=== PATIENT | female | born 1950 | race Caucasian/White ===

== ENCOUNTER 2021-05-02 19:36 | Inpatient (IN) | payer MEDICARE ==
[~2021-05-02] VITALS: Ht 167.6 cm; Wt 55.9 kg
[2021-05-02] MEDS ORDERED: dexamethasone sod phosphate 10mg/ml inj IV STA (19:38)
[2021-05-02] MEDS ORDERED: normal saline 1000ML IV soln IVB ONE (19:40)
[2021-05-02 20:18] LABS: BASOPHILS % (AUTO) 0 % (0-1); EOSINOPHILS % (AUTO) 0 % (0-6); HEMOGLOBIN 12.6 g/dl (12.0-16.0); LYMPHOCYTES # (AUTO) 0.6 X10'3 (1.1-4.8); LYMPHOCYTES % (AUTO) 8.8 % (21-51); MEAN CORPUSCULAR HEMOGLOBIN 33.1 PG (27.0-31.0); MEAN CORPUSCULAR HGB CONC 34.2 g/dL (33.0-36.5); MEAN CORPUSCULAR VOLUME 96.9 FL (78-98); MEAN PLATELET VOLUME 7.8 FL (7.4-10.4); MONOCYTES # (AUTO) 0.6 X10'3 (0-0.9); NEUTROPHILS # (AUTO) 5.9 X10'3 (1.8-7.7); NEUTROPHILS % (AUTO) 83.2 % (42-75); PLATELET COUNT 205 X10'3 (140-440); RED BLOOD COUNT 3.81 X10'6 (4.20-5.60); RED CELL DISTRIBUTION WIDTH 14.6 % (11.5-14.5); WHITE BLOOD COUNT 7.1 X10'3 (4.5-11.0)
[2021-05-02 20:24] LABS: ALANINE AMINOTRANSFERASE 36 U/L (12-78); ALBUMIN 3.5 G/DL (3.4-5.0); ALBUMIN/GLOBULIN RATIO 0.9 (1.1-1.5); ALKALINE PHOSPHATASE 52 IU/L (46-116); ANION GAP 13 (8-16); ASPARTATE AMINO TRANSFERASE 38 U/L (10-37); BILIRUBIN,TOTAL 0.2 MG/DL (0.1-1.0); BLOOD UREA NITROGEN 22 MG/DL (7-18); BUN/CREATININE RATIO 19.8 (6.6-38.0); CALCIUM 8.5 MG/DL (8.5-10.1); CHLORIDE 104 MMOL/L (99-107); CREATININE 1.11 MG/DL (0.40-0.90); GLUCOSE 121 MG/DL (70-104); POTASSIUM 3.3 MMOL/L (3.5-5.1); SODIUM 143 MMOL/L (135-145); TOTAL CARBON DIOXIDE 26.1 MMOL/L (24-32); TOTAL PROTEIN 7.3 G/DL (6.4-8.2); eGFR 48 ML/MIN
[2021-05-02] MEDS ORDERED: ALBUTEROL INHALER 1 PUFF/90 MCG INHALER IH PRN (20:40)
--- NOTE | 2021-05-02 21:14 | NUR ---
talked with pattern painter at [facility]. updated on patients 2LPM 02 requirement and no additional interventions needed. staff member is talking with director to see if patient is able to return with oxygen
--- NOTE | 2021-05-02 21:16 | NUR ---
kassi harden returned call. will aurora to keep patient in ED to set up oxygen in the AM. provider notified
[2021-05-02] MEDS ORDERED: ondansetron/PF 4mg/2ml inj IV PRN (21:50)
[2021-05-02] MEDS ORDERED: morphine 2 MG/ML inj. syringe IV PRN ×2 (21:50)
[2021-05-02] MEDS ORDERED: mag hydrox/Alum hydrox/simeth 30ml oral suspension PO PRN (21:50)
[2021-05-02] MEDS ORDERED: HYDROcodone/acetaminophen 5mg/325mg tablet PO PRN (21:50)
[2021-05-02] MEDS ORDERED: magnesium hydroxide 30ml (MOM) UD suspension PO PRN (21:50)
[2021-05-02] MEDS ORDERED: acetaminophen 325mg tablet PO PRN ×2 (21:50)
[2021-05-02] MEDS ORDERED: ACYC-129 PO (21:57)
[2021-05-02] MEDS ORDERED: ALLO100T PO (21:57)
[2021-05-02] MEDS ORDERED: ALBU8.5H17 IH (21:57)
[2021-05-02] MEDS ORDERED: BACL-11 PO (21:57)
[2021-05-02] MEDS ORDERED: DEC4T PO (22:01)
[2021-05-02] MEDS ORDERED: OMEP40CA21 PO (22:01)
[2021-05-02] MEDS ORDERED: MELA10TA2 PO (22:01)
[2021-05-02] MEDS ORDERED: ROPI1TAB6 PO (22:01)
[2021-05-02] MEDS ORDERED: OLAN5TAB5 PO (22:01)
[2021-05-02] MEDS ORDERED: FURO-150 PO (22:01)
[2021-05-02] MEDS ORDERED: OXYB5TAB16 PO (22:01)
[2021-05-02] MEDS ORDERED: FLUO10CA30 PO (22:01)
[2021-05-02] MEDS ORDERED: GABA-530 PO (22:01)
[2021-05-02 22:09] LABS: D-DIMER 0.22 MG/L FEU (0-0.50)
[2021-05-02 22:27] LABS: PHOSPHORUS 3.2 MG/DL (2.3-4.5); TROPONIN I < 0.04 NG/ML (0.0-0.05)
[2021-05-03 05:29] LABS: BASOPHILS % (AUTO) 0 % (0-1); EOSINOPHILS % (AUTO) 0 % (0-6); HEMATOCRIT 32.6 % (35.0-45.0); HEMOGLOBIN 11.2 g/dl (12.0-16.0); LYMPHOCYTES # (AUTO) 0.5 X10'3 (1.1-4.8); LYMPHOCYTES % (AUTO) 10.1 % (21-51); MEAN CORPUSCULAR HEMOGLOBIN 33.2 PG (27.0-31.0); MEAN CORPUSCULAR HGB CONC 34.4 g/dL (33.0-36.5); MEAN CORPUSCULAR VOLUME 96.6 FL (78-98); MONOCYTES # (AUTO) 0.3 X10'3 (0-0.9); MONOCYTES % (AUTO) 5.5 % (2-12); NEUTROPHILS # (AUTO) 4.2 X10'3 (1.8-7.7); NEUTROPHILS % (AUTO) 84.4 % (42-75); PLATELET COUNT 157 X10'3 (140-440); RED BLOOD COUNT 3.37 X10'6 (4.20-5.60); RED CELL DISTRIBUTION WIDTH 14.4 % (11.5-14.5)
[2021-05-03 05:37] LABS: ALBUMIN 2.7 G/DL (3.4-5.0); ANION GAP 8 (8-16); BLOOD UREA NITROGEN 18 MG/DL (7-18); BUN/CREATININE RATIO 20.9 (6.6-38.0); CALCIUM 8.1 MG/DL (8.5-10.1); CHLORIDE 108 MMOL/L (99-107); CREATININE 0.86 MG/DL (0.40-0.90); GLUCOSE 148 MG/DL (70-104); POTASSIUM 3.5 MMOL/L (3.5-5.1); SODIUM 141 MMOL/L (135-145); TOTAL CARBON DIOXIDE 25.2 MMOL/L (24-32); eGFR 65 ML/MIN
[2021-05-03] MEDS ORDERED: ALBUTEROL INHALER 1 PUFF/90 MCG INHALER IH PRN (06:25)
[2021-05-03] MEDS: OLANZapine 5mg rapidly disint. tablet PO SCH (08:00)
[2021-05-03] MEDS: docusate sod 100mg capsule PO SCH ×2 (08:00→20:00)
[2021-05-03] MEDS: ROPINIRole 1mg tablet PO SCH ×2 (09:54→19:32)
[2021-05-03] MEDS: enoxaparin 40mg/0.4ml syringe SUBCUT SCH (09:54)
[2021-05-03] MEDS: pantoprazole 40mg Tablet.DR PO SCH (09:54)
[2021-05-03] MEDS: oxybutynin 5mg tablet PO SCH ×2 (09:55→19:31)
[2021-05-03] MEDS: allopurinol 100mg tablet PO SCH (09:55)
[2021-05-03] MEDS: furosemide 20MG tablet PO SCH (09:56)
[2021-05-03] MEDS: baclofen 10mg tablet PO SCH ×2 (09:58→19:31)
[2021-05-03] MEDS: FLUoxetine 20mg capsule PO SCH (09:58)
[2021-05-03 10:01] VITALS: BP 104/60
[2021-05-03 11:00] VITALS: BP 116/48
[2021-05-03] MEDS: dexamethasone sod phosphate 10mg/ml inj IV SCH ×2 (11:03→19:32)
[2021-05-03 15:00] VITALS: BP 129/99
[2021-05-03 18:00] VITALS: BP 131/62
--- NOTE | 2021-05-03 18:41 | NUR ---
Problems reprioritized. Patient report given, questions answered & plan of care reviewed with ELLEN LANGE.
[2021-05-03] MEDS: gabapentin 300mg capsule PO SCH (20:58)
[2021-05-03] MEDS: Melatonin 3mg tablet PO SCH (20:58)
[2021-05-03 22:00] VITALS: BP 118/55
--- NOTE | 2021-05-04 01:22 | NUR ---
RT paged for Tierney HUGHES to assist pt with prn breathing tx if indicated. "RE: [phone]: pawel allyson: pt is working hard to breath. RR elevated mid 20's up to 32/min. can she have a breathing tx? Thank you, -Bev HUGHES and Tierney HUGHES"
[2021-05-04 02:00] VITALS: BP 121/99
[2021-05-04 06:00] VITALS: BP 111/59
--- NOTE | 2021-05-04 06:23 | NUR ---
Problems reprioritized. Patient report given, questions answered & plan of care reviewed with ELLEN Calvin.
--- NOTE | 2021-05-04 06:27 | NUR ---
Patient in room PCU 3008. I have received report from ELLEN Monet and had the opportunity to ask questions and assume patient care.
[2021-05-04 06:55] LABS: BASOPHILS % (AUTO) 0.1 % (0-1); EOSINOPHILS % (AUTO) 0 % (0-6); HEMATOCRIT 38.9 % (35.0-45.0); HEMOGLOBIN 13.3 g/dl (12.0-16.0); LYMPHOCYTES # (AUTO) 0.6 X10'3 (1.1-4.8); LYMPHOCYTES % (AUTO) 6.3 % (21-51); MEAN CORPUSCULAR HGB CONC 34.1 g/dL (33.0-36.5); MEAN PLATELET VOLUME 7.5 FL (7.4-10.4); MONOCYTES # (AUTO) 0.4 X10'3 (0-0.9); MONOCYTES % (AUTO) 3.7 % (2-12); NEUTROPHILS % (AUTO) 89.9 % (42-75); PLATELET COUNT 247 X10'3 (140-440); RED BLOOD COUNT 4.01 X10'6 (4.20-5.60); RED CELL DISTRIBUTION WIDTH 14.8 % (11.5-14.5)
[2021-05-04 07:03] LABS: ANION GAP 7 (8-16); BLOOD UREA NITROGEN 20 MG/DL (7-18); BUN/CREATININE RATIO 20.2 (6.6-38.0); CALCIUM 8.9 MG/DL (8.5-10.1); CHLORIDE 109 MMOL/L (99-107); CREATININE 0.99 MG/DL (0.40-0.90); GLUCOSE 117 MG/DL (70-104); POTASSIUM 3.8 MMOL/L (3.5-5.1); SODIUM 147 MMOL/L (135-145); TOTAL CARBON DIOXIDE 30.6 MMOL/L (24-32); eGFR 55 ML/MIN
[2021-05-04] MEDS: baclofen 10mg tablet PO SCH ×2 (07:22→19:54)
[2021-05-04] MEDS: allopurinol 100mg tablet PO SCH (07:22)
[2021-05-04] MEDS: FLUoxetine 20mg capsule PO SCH (07:22)
[2021-05-04] MEDS: pantoprazole 40mg Tablet.DR PO SCH (07:22)
[2021-05-04] MEDS: docusate sod 100mg capsule PO SCH ×2 (07:22→19:54)
[2021-05-04] MEDS: enoxaparin 40mg/0.4ml syringe SUBCUT SCH (07:22)
[2021-05-04] MEDS: furosemide 20MG tablet PO SCH (07:22)
[2021-05-04] MEDS: oxybutynin 5mg tablet PO SCH ×2 (07:22→19:54)
[2021-05-04] MEDS: ROPINIRole 1mg tablet PO SCH ×2 (07:22→19:54)
[2021-05-04] MEDS: OLANZapine 5mg rapidly disint. tablet PO SCH (07:23)
[2021-05-04] MEDS: dexamethasone sod phosphate 10mg/ml inj IV SCH ×2 (07:23→19:54)
[2021-05-04 11:00] VITALS: BP 115/65
[2021-05-04 12:57] LABS: D-DIMER 0.25 MG/L FEU (0-0.50)
--- NOTE | 2021-05-04 13:49 | NUR ---
Malnutrition consult "pt deaf/mute w/ dementia, unable to determine full need": Pt admit DX COVID-19 PNA and acute respiratory failure hx deaf and mute w/ only written communication per EMR. Pt unsure of wt loss hx per RN malnutrition screen, appears WD/WN per ER note, has no edema/wounds, PO 50% avg regular diet up to 75% WB this AM; and current BMI appropriate given age. Lacks minimum two malnutrition criteria at this time. Noted pt SOB increasing today per MD note; recommend Ensure high protein TIDWM for additional protein/kcals. MD notified. Addendum: 05/04/21 at [address] Amended: Links added.
[2021-05-04 15:00] VITALS: BP 110/62
--- NOTE | 2021-05-04 16:42 | NUR ---
Paged RT d/t ongoing desaturation: Mathieu Jimenez [phone] pt continues to desat into mid 80s with 15LHFNC. Can you evaluate? Thank you! Marixa [phone]
[2021-05-04 18:00] VITALS: BP 122/71
[2021-05-04] MEDS: lactose-reduced food (Ensure High Protein) 237ml bottle PO SCH (18:00)
--- NOTE | 2021-05-04 18:02 | NUR ---
Problems reprioritized. Patient report given, questions answered & plan of care reviewed with ELLEN Monet.
--- NOTE | 2021-05-04 18:27 | NUR ---
Problems reprioritized. Patient report given, questions answered & plan of care reviewed with ELLEN Valencia.
[2021-05-04] MEDS: Melatonin 3mg tablet PO SCH (20:56)
[2021-05-04] MEDS: gabapentin 300mg capsule PO SCH (20:56)
[2021-05-04 22:00] VITALS: BP 104/57
--- NOTE | 2021-05-04 22:28 | NUR ---
Paged RT. RE : pt in RM 1410 Andreina Murdcok Dx : Covid +. Pt keeps on desating t because she keeps on removing her nonrebreather mask. Can she have a Vapotherm instead? Thanks!
[2021-05-05 02:00] VITALS: BP 104/51
[2021-05-05 06:00] VITALS: BP 101/87
--- NOTE | 2021-05-05 06:15 | NUR ---
Patient in room PCU 3008. I have received report from Beulah HUGHES and had the opportunity to ask questions and assume patient care.
--- NOTE | 2021-05-05 06:20 | NUR ---
Problems reprioritized. Patient report given, questions answered & plan of care reviewed with ELLEN Cortez.
[2021-05-05 06:48] LABS: BASOPHILS % (AUTO) 0.1 % (0-1); EOSINOPHILS % (AUTO) 0 % (0-6); HEMATOCRIT 37.9 % (35.0-45.0); HEMOGLOBIN 12.7 g/dl (12.0-16.0); LYMPHOCYTES # (AUTO) 0.6 X10'3 (1.1-4.8); LYMPHOCYTES % (AUTO) 5.5 % (21-51); MEAN CORPUSCULAR HEMOGLOBIN 32.8 PG (27.0-31.0); MEAN CORPUSCULAR HGB CONC 33.5 g/dL (33.0-36.5); MEAN CORPUSCULAR VOLUME 97.8 FL (78-98); MEAN PLATELET VOLUME 7.8 FL (7.4-10.4); MONOCYTES # (AUTO) 0.3 X10'3 (0-0.9); MONOCYTES % (AUTO) 2.4 % (2-12); NEUTROPHILS # (AUTO) 10.6 X10'3 (1.8-7.7); PLATELET COUNT 260 X10'3 (140-440); RED BLOOD COUNT 3.87 X10'6 (4.20-5.60); RED CELL DISTRIBUTION WIDTH 14.6 % (11.5-14.5); WHITE BLOOD COUNT 11.5 X10'3 (4.5-11.0)
[2021-05-05 07:07] LABS: ALBUMIN 2.6 G/DL (3.4-5.0); ANION GAP 8 (8-16); BLOOD UREA NITROGEN 23 MG/DL (7-18); BUN/CREATININE RATIO 25.6 (6.6-38.0); C-REACTIVE PROTEIN 14.06 MG/DL (0.0-0.5); CALCIUM 8.6 MG/DL (8.5-10.1); CHLORIDE 105 MMOL/L (99-107); GLUCOSE 117 MG/DL (70-104); POTASSIUM 3.5 MMOL/L (3.5-5.1); SODIUM 142 MMOL/L (135-145); TOTAL CARBON DIOXIDE 28.6 MMOL/L (24-32); eGFR 62 ML/MIN
[2021-05-05 07:09] LABS: D-DIMER 0.59 MG/L FEU (0-0.50)
[2021-05-05] MEDS: lactose-reduced food (Ensure High Protein) 237ml bottle PO SCH ×3 (08:00→18:00)
--- NOTE | 2021-05-05 08:21 | NUR ---
In Room with Pt. pt repeatedly takes non-rebreather mask off. Tried repeatedly to communicate with Pt the importance of wearing the mask by writing everything down on a note pad for Pt. Pt wrote that she understood but continues to take mask off. Pt has history of dementia, is mute and also deaf. Will continue to monitor Pt as needed and continue to try to educate her.
[2021-05-05] MEDS: docusate sod 100mg capsule PO SCH ×2 (08:48→20:21)
[2021-05-05] MEDS: OLANZapine 5mg rapidly disint. tablet PO SCH (08:48)
[2021-05-05] MEDS: baclofen 10mg tablet PO SCH ×2 (08:49→20:22)
[2021-05-05] MEDS: allopurinol 100mg tablet PO SCH (08:49)
[2021-05-05] MEDS: FLUoxetine 20mg capsule PO SCH (08:49)
[2021-05-05] MEDS: ROPINIRole 1mg tablet PO SCH ×2 (08:49→20:21)
[2021-05-05] MEDS: pantoprazole 40mg Tablet.DR PO SCH (08:50)
[2021-05-05] MEDS: dexamethasone sod phosphate 10mg/ml inj IV SCH (08:50)
[2021-05-05] MEDS: furosemide 20MG tablet PO SCH (08:50)
[2021-05-05] MEDS: oxybutynin 5mg tablet PO SCH ×2 (08:50→20:22)
[2021-05-05] MEDS: enoxaparin 40mg/0.4ml syringe SUBCUT SCH (08:53)
[2021-05-05 11:00] VITALS: BP 111/49
[2021-05-05 15:00] VITALS: BP 100/76
[2021-05-05 18:00] VITALS: BP 98/60
--- NOTE | 2021-05-05 18:05 | NUR ---
Problems reprioritized. Patient report given, questions answered & plan of care reviewed with Brianna HUGHES.
--- NOTE | 2021-05-05 18:27 | NUR ---
Problems reprioritized. Patient report given, questions answered & plan of care reviewed with Brianna HUGHES.
--- NOTE | 2021-05-05 18:30 | NUR ---
Patient in room PCU 3008. I have received report from ZINA HUGHES and had the opportunity to ask questions and assume patient care.
[2021-05-05] MEDS: gabapentin 300mg capsule PO SCH (21:46)
[2021-05-05] MEDS: Melatonin 3mg tablet PO SCH (21:48)
[2021-05-05 22:00] VITALS: BP 119/48
--- NOTE | 2021-05-05 23:00 | NUR ---
RT RESET HIGH DANIELA SETTING TO 100 OXYGEN AND 40 fI o2 TO KEEP OXYGEN SATS ABOVE 90. WILL CONTINUE TOMONITOR FOR HYPOXIA. PEPE HUGHES
[2021-05-06 02:00] VITALS: BP 100/48
[2021-05-06] MEDS: LORazepam 2 mg/ml vial IV PRN ×2 (04:27→12:37)
--- NOTE | 2021-05-06 06:46 | NUR ---
Patient in room PCU 3008. I have received report from ELLEN Reed and had the opportunity to ask questions and assume patient care.
--- NOTE | 2021-05-06 06:47 | NUR ---
Problems reprioritized. Patient report given, questions answered & plan of care reviewed with BLAIRE HUGHES.
--- NOTE | 2021-05-06 06:59 | NUR ---
Patient in room PCU 3008. I have received report from Marixa HUGHES and had the opportunity to ask questions and assume patient care.
[2021-05-06] MEDS: pantoprazole 40mg Tablet.DR PO SCH (07:30)
[2021-05-06 07:31] LABS: BASOPHILS % (AUTO) 0 % (0-1); EOSINOPHILS % (AUTO) 0 % (0-6); HEMATOCRIT 36.1 % (35.0-45.0); HEMOGLOBIN 12.3 g/dl (12.0-16.0); LYMPHOCYTES # (AUTO) 0.6 X10'3 (1.1-4.8); LYMPHOCYTES % (AUTO) 5.4 % (21-51); MEAN CORPUSCULAR HEMOGLOBIN 32.5 PG (27.0-31.0); MEAN CORPUSCULAR HGB CONC 34.1 g/dL (33.0-36.5); MEAN CORPUSCULAR VOLUME 95.2 FL (78-98); MEAN PLATELET VOLUME 7.8 FL (7.4-10.4); MONOCYTES # (AUTO) 0.4 X10'3 (0-0.9); MONOCYTES % (AUTO) 3.3 % (2-12); NEUTROPHILS # (AUTO) 10.5 X10'3 (1.8-7.7); NEUTROPHILS % (AUTO) 91.3 % (42-75); PLATELET COUNT 297 X10'3 (140-440); RED BLOOD COUNT 3.79 X10'6 (4.20-5.60); RED CELL DISTRIBUTION WIDTH 14.5 % (11.5-14.5); WHITE BLOOD COUNT 11.6 X10'3 (4.5-11.0)
[2021-05-06 07:46] LABS: ALBUMIN 2.5 G/DL (3.4-5.0); ANION GAP 8 (8-16); BLOOD UREA NITROGEN 29 MG/DL (7-18); BUN/CREATININE RATIO 36.7 (6.6-38.0); C-REACTIVE PROTEIN 18.75 MG/DL (0.0-0.5); CALCIUM 9.1 MG/DL (8.5-10.1); CHLORIDE 106 MMOL/L (99-107); CREATININE 0.79 MG/DL (0.40-0.90); GLUCOSE 125 MG/DL (70-104); POTASSIUM 3.5 MMOL/L (3.5-5.1); SODIUM 141 MMOL/L (135-145); TOTAL CARBON DIOXIDE 27.4 MMOL/L (24-32); eGFR 72 ML/MIN
[2021-05-06] MEDS: lactose-reduced food (Ensure High Protein) 237ml bottle PO SCH ×3 (08:00→18:00)
[2021-05-06] MEDS: furosemide 20MG tablet PO SCH (08:00)
[2021-05-06] MEDS: FLUoxetine 20mg capsule PO SCH (08:00)
[2021-05-06] MEDS: allopurinol 100mg tablet PO SCH (08:00)
[2021-05-06] MEDS: ROPINIRole 1mg tablet PO SCH ×2 (08:00→20:41)
[2021-05-06] MEDS: enoxaparin 40mg/0.4ml syringe SUBCUT SCH (08:00)
[2021-05-06] MEDS: oxybutynin 5mg tablet PO SCH ×2 (08:00→20:41)
[2021-05-06] MEDS: docusate sod 100mg capsule PO SCH ×2 (08:00→20:42)
[2021-05-06] MEDS: OLANZapine 5mg rapidly disint. tablet PO SCH (08:00)
[2021-05-06] MEDS: baclofen 10mg tablet PO SCH ×2 (08:00→20:41)
[2021-05-06] MEDS: dexamethasone sod phosphate 10mg/ml inj IV SCH ×2 (08:00→20:42)
[2021-05-06 08:39] LABS: D-DIMER 0.58 MG/L FEU (0-0.50)
--- NOTE | 2021-05-06 11:00 | NUR ---
welding technician reported patient desaturating into the low 80s. Paged Dr. Hernandez because patient has been having increase oxygen requirements and has never had a blood gas. Blood gas ordered.
[2021-05-06 11:28] VITALS: BP 105/87
--- NOTE | 2021-05-06 11:49 | NUR ---
PAGER ID: [phone] MESSAGE: [phone] Marcio I just had to put a non rebreather on at 15 liters on top of the high flow, respiratory rate in the 30s, saturating in the low 80s. Do you want a blood gas? paul [phone]
[2021-05-06 12:08] LABS: ABG BASE EXCESS 2.6 mmol/L (-2.0-2.0); ABG HCO3 26.2 mmol/L (22.0-26.0); ABG OXYGEN SATURATION 91.6 % (94-97); ABG PCO2 (T) 37.9 mmHg (32.0-45.0); ABG PO2 (T) 62.3 mmHg (75.0-100.0); ALLEN'S TEST POSITIVE; FCOHb 0.3 % (0.0-3.9); FLOW 40 L/min; FMetHb 0.2 % (0.0-1.5); FO2Hb 91.1 % (94-97); PATIENT TEMPERATURE 37.6; TOTAL HEMOGLOBIN 12.9 G/dl (12.0-16.0)
--- NOTE | 2021-05-06 12:12 | NUR ---
PAGER ID: [phone] MESSAGE: DOUGLAS ON TELE, CAN RT GET AN ORDER FOR CPAP/BIPAP ON 3008?
--- NOTE | 2021-05-06 12:26 | NUR ---
promotional table spacer PAGER ID: [phone] MESSAGE: [phone] Marcio is on bipap now, can I start some IV fluids to keep her hydrated? paul [phone]
--- NOTE | 2021-05-06 12:45 | NUR ---
Patient is resting much more comfortably on CPAP. Oxygen saturations in the high 90s. 1mg ativan given to help with work of breathing and restlessness. Sitter at bedside.
--- NOTE | 2021-05-06 13:54 | NUR ---
PAGER ID: [phone] MESSAGE: [phone] Marcio, blood pressure is 98/41 map of 57 and heart rate at rest is in the 60s, sleeping in the 40s. paul [phone]
[2021-05-06 14:45] VITALS: BP_SYST 91; BP_SYST 98; BP_DIAS 40
--- NOTE | 2021-05-06 14:45 | NUR ---
One time 250ml bolus given per protocol for map <60
[2021-05-06 16:11] VITALS: BP 112/60
--- NOTE | 2021-05-06 18:26 | NUR ---
Problems reprioritized. Patient report given, questions answered & plan of care reviewed with Brianna HUGHES.
--- NOTE | 2021-05-06 19:05 | NUR ---
Problems reprioritized. Patient report given, questions answered & plan of care reviewed with CARRIE HUGHES.
[2021-05-06] MEDS: gabapentin 300mg capsule PO SCH (20:41)
[2021-05-06] MEDS: Melatonin 3mg tablet PO SCH (20:41)
[2021-05-06 22:00] VITALS: BP 95/66
[2021-05-07 02:00] VITALS: BP 92/55
--- NOTE | 2021-05-07 06:30 | NUR ---
Patient in room PCU 3008. I have received report from hosea blancas and had the opportunity to ask questions and assume patient care.
[2021-05-07 07:00] VITALS: BP 114/52
[2021-05-07 07:27] LABS: BASOPHILS % (AUTO) 0 % (0-1); EOSINOPHILS % (AUTO) 0.1 % (0-6); HEMATOCRIT 36.3 % (35.0-45.0); HEMOGLOBIN 12.1 g/dl (12.0-16.0); LYMPHOCYTES # (AUTO) 0.5 X10'3 (1.1-4.8); LYMPHOCYTES % (AUTO) 4.4 % (21-51); MEAN CORPUSCULAR HEMOGLOBIN 32.4 PG (27.0-31.0); MEAN CORPUSCULAR HGB CONC 33.4 g/dL (33.0-36.5); MEAN CORPUSCULAR VOLUME 97.1 FL (78-98); MEAN PLATELET VOLUME 7.5 FL (7.4-10.4); MONOCYTES # (AUTO) 0.3 X10'3 (0-0.9); MONOCYTES % (AUTO) 2.3 % (2-12); NEUTROPHILS # (AUTO) 11.1 X10'3 (1.8-7.7); NEUTROPHILS % (AUTO) 93.2 % (42-75); PLATELET COUNT 336 X10'3 (140-440); RED BLOOD COUNT 3.74 X10'6 (4.20-5.60); RED CELL DISTRIBUTION WIDTH 14.3 % (11.5-14.5); WHITE BLOOD COUNT 11.9 X10'3 (4.5-11.0)
[2021-05-07] MEDS: pantoprazole 40mg Tablet.DR PO SCH (07:30)
[2021-05-07 07:43] LABS: D-DIMER 1.23 MG/L FEU (0-0.50)
[2021-05-07 07:46] LABS: ALBUMIN 2.4 G/DL (3.4-5.0); ANION GAP 8 (8-16); BLOOD UREA NITROGEN 24 MG/DL (7-18); BUN/CREATININE RATIO 33.3 (6.6-38.0); C-REACTIVE PROTEIN 11.58 MG/DL (0.0-0.5); CALCIUM 9.1 MG/DL (8.5-10.1); CHLORIDE 108 MMOL/L (99-107); CREATININE 0.72 MG/DL (0.40-0.90); GLUCOSE 107 MG/DL (70-104); SODIUM 143 MMOL/L (135-145); TOTAL CARBON DIOXIDE 27.1 MMOL/L (24-32); eGFR 80 ML/MIN
[2021-05-07] MEDS: oxybutynin 5mg tablet PO SCH ×2 (08:00→20:00)
[2021-05-07] MEDS: enoxaparin 40mg/0.4ml syringe SUBCUT SCH (08:00)
[2021-05-07] MEDS: docusate sod 100mg capsule PO SCH ×2 (08:00→20:00)
[2021-05-07] MEDS: allopurinol 100mg tablet PO SCH (08:00)
[2021-05-07] MEDS: OLANZapine 5mg rapidly disint. tablet PO SCH (08:00)
[2021-05-07] MEDS: ROPINIRole 1mg tablet PO SCH ×2 (08:00→20:00)
[2021-05-07] MEDS: dexamethasone sod phosphate 10mg/ml inj IV SCH ×2 (08:00→20:42)
[2021-05-07] MEDS: lactose-reduced food (Ensure High Protein) 237ml bottle PO SCH ×3 (08:00→18:00)
--- NOTE | 2021-05-07 09:00 | NUR ---
Attempted to assist pt with po intake and meds. Sat pt upright attempted to use NRB mask @ 15L, with sao2 down to 70's. Pt will blow bubbles in liquid , then drink large amount and cough. Attempted 2 pills in applesauce, still upright, with chin tucked , still with copious coughing Dr. Flores at bedside po lasix changed to iv. Spoke at length with juan long distance,who stated he was an md, explained inability to swallow, use of cpap, details of care. Shared above with jen stark (Juan #[phone])
--- NOTE | 2021-05-07 10:22 | NUR ---
Initial: Pt admitted +Covid and SOB. Per EMR, pt is deaf and mute and communicates via writing only. Pt A&O x 1 at this time, requiring CPAP. PO intake remains low but adequate w/ ONS, avg 37% x 8 meals Regular diet and 33% ONS which meets 79% of est energy needs and 66% of est protein needs. AMS and CPAP use likely affecting PO intake. Pt noted w/ small abrasion on Sacrum. LBM 05/04. No nutritional diagnosis at this time, will continue to monitor PO trends. Rec: 1. Continue regular diet as tolerated 2. Continue Ensure High protein TID 3. Bowel care per rx 4. Weekly wts Addendum: 05/07/21 at [address] Amended: Links added.
[2021-05-07] MEDS: baclofen 10mg tablet PO SCH ×2 (10:49→20:00)
[2021-05-07] MEDS: FLUoxetine 20mg capsule PO SCH (10:49)
[2021-05-07 11:00] VITALS: BP 112/58
[2021-05-07] MEDS ORDERED: furosemide 20 MG/2 ML vial IV SCH (11:00)
[2021-05-07 12:35] LABS: HEMATOCRIT 39.1 % (35.0-45.0); HEMOGLOBIN 12.8 g/dl (12.0-16.0); RED BLOOD COUNT 4.01 X10'6 (4.20-5.60); WHITE BLOOD COUNT 14.3 X10'3 (4.5-11.0)
[2021-05-07 12:36] LABS: BASOPHILS % (AUTO) 0.1 % (0-1); EOSINOPHILS % (AUTO) 0.2 % (0-6); LYMPHOCYTES # (AUTO) 0.3 X10'3 (1.1-4.8); LYMPHOCYTES % (AUTO) 1.8 % (21-51); MEAN CORPUSCULAR HGB CONC 32.9 g/dL (33.0-36.5); MEAN CORPUSCULAR VOLUME 97.4 FL (78-98); MEAN PLATELET VOLUME 7.3 FL (7.4-10.4); MONOCYTES # (AUTO) 0.4 X10'3 (0-0.9); MONOCYTES % (AUTO) 2.6 % (2-12); NEUTROPHILS # (AUTO) 13.6 X10'3 (1.8-7.7); NEUTROPHILS % (AUTO) 95.3 % (42-75); PLATELET COUNT 332 X10'3 (140-440); RED CELL DISTRIBUTION WIDTH 14.8 % (11.5-14.5)
[2021-05-07 12:53] LABS: ALBUMIN 2.5 G/DL (3.4-5.0); ANION GAP 10 (8-16); BLOOD UREA NITROGEN 23 MG/DL (7-18); BUN/CREATININE RATIO 27.7 (6.6-38.0); C-REACTIVE PROTEIN 12.88 MG/DL (0.0-0.5); CALCIUM 9.3 MG/DL (8.5-10.1); CHLORIDE 108 MMOL/L (99-107); CREATININE 0.83 MG/DL (0.40-0.90); GLUCOSE 112 MG/DL (70-104); SODIUM 146 MMOL/L (135-145); TOTAL CARBON DIOXIDE 28.3 MMOL/L (24-32); eGFR 68 ML/MIN
[2021-05-07 15:00] VITALS: BP 109/65
--- NOTE | 2021-05-07 18:48 | NUR ---
Problems reprioritized. Patient report given, questions answered & plan of care reviewed with .hosea driscoll
[2021-05-07] MEDS: Melatonin 3mg tablet PO SCH (21:00)
[2021-05-07] MEDS: gabapentin 300mg capsule PO SCH (21:00)
[2021-05-07 22:00] VITALS: BP 120/61
[2021-05-08] VITALS (10 sets, daily range): BP systolic 106–142; BP diastolic 49–112
[2021-05-08] MEDS: LORazepam 2 mg/ml vial IV PRN (04:04)
--- NOTE | 2021-05-08 06:15 | NUR ---
Patient in room PCU 3008. I have received report from ELLEN Renner and had the opportunity to ask questions and assume patient care.
--- NOTE | 2021-05-08 06:25 | NUR ---
Problems reprioritized. Patient report given, questions answered & plan of care reviewed with ELLEN Savage.
[2021-05-08] MEDS: pantoprazole 40mg Tablet.DR PO SCH ×2 (07:30→09:48)
[2021-05-08] MEDS: OLANZapine 5mg rapidly disint. tablet PO SCH ×2 (08:00→09:50)
[2021-05-08] MEDS: baclofen 10mg tablet PO SCH ×3 (08:00→20:00)
[2021-05-08] MEDS: oxybutynin 5mg tablet PO SCH ×3 (08:00→20:00)
[2021-05-08] MEDS: ROPINIRole 1mg tablet PO SCH ×3 (08:00→20:00)
[2021-05-08] MEDS: FLUoxetine 20mg capsule PO SCH ×2 (08:00→09:47)
[2021-05-08] MEDS: allopurinol 100mg tablet PO SCH ×2 (08:00→09:48)
[2021-05-08] MEDS: lactose-reduced food (Ensure High Protein) 237ml bottle PO SCH ×3 (08:00→18:00)
[2021-05-08] MEDS: docusate sodium 100mg/10ml UD cup PO SCH ×3 (08:04→10:00)
[2021-05-08] MEDS: enoxaparin 40mg/0.4ml syringe SUBCUT SCH ×4 (09:48→22:00)
[2021-05-08] MEDS: dexamethasone sod phosphate 10mg/ml inj IV SCH ×2 (09:49→10:01)
[2021-05-08 09:57] LABS: D-DIMER 2.75 MG/L FEU (0-0.50)
--- NOTE | 2021-05-08 10:19 | NUR ---
I paged Sandra Mathew for temperature of my pt that was 101. PAGER ID: [phone] MESSAGE: Re Marcio Hdz Room 3008. She is not alert and is not able to swallow. Her Temp is 101. Do you advise for any suppository. Thanks, ELLEN Riley, u, [phone]
[2021-05-08] MEDS ORDERED: acetaminophen 650mg rectal suppository RC PRN (11:30)
[2021-05-08 11:46] LABS: BASOPHILS % (AUTO) 0 % (0-1); EOSINOPHILS % (AUTO) 0 % (0-6); HEMOGLOBIN 13.9 g/dl (12.0-16.0); LYMPHOCYTES # (AUTO) 0.3 X10'3 (1.1-4.8); MEAN CORPUSCULAR HEMOGLOBIN 32.7 PG (27.0-31.0); MEAN PLATELET VOLUME 7.7 FL (7.4-10.4); MONOCYTES # (AUTO) 0.2 X10'3 (0-0.9); MONOCYTES % (AUTO) 1.5 % (2-12); NEUTROPHILS % (AUTO) 96.5 % (42-75); PLATELET COUNT 405 X10'3 (140-440); RED BLOOD COUNT 4.24 X10'6 (4.20-5.60); RED CELL DISTRIBUTION WIDTH 14.9 % (11.5-14.5); WHITE BLOOD COUNT 15.5 X10'3 (4.5-11.0)
[2021-05-08 11:54] LABS: ALANINE AMINOTRANSFERASE 54 U/L (12-78); ALBUMIN 2.6 G/DL (3.4-5.0); ALBUMIN/GLOBULIN RATIO 0.5 (1.1-1.5); ALKALINE PHOSPHATASE 83 IU/L (46-116); ANION GAP 11 (8-16); ASPARTATE AMINO TRANSFERASE 36 U/L (10-37); BILIRUBIN,TOTAL 0.6 MG/DL (0.1-1.0); BLOOD UREA NITROGEN 27 MG/DL (7-18); BUN/CREATININE RATIO 25.5 (6.6-38.0); CHLORIDE 107 MMOL/L (99-107); CREATININE 1.06 MG/DL (0.40-0.90); GLUCOSE 100 MG/DL (70-104); POTASSIUM 4.8 MMOL/L (3.5-5.1); SODIUM 147 MMOL/L (135-145); TOTAL CARBON DIOXIDE 28.8 MMOL/L (24-32); TOTAL PROTEIN 7.9 G/DL (6.4-8.2); eGFR 51 ML/MIN
--- NOTE | 2021-05-08 11:58 | NUR ---
Patient is not alert and is unable to swallow. PO meds not given this morning due to safety issue. PO meds were discarded in sharps box and not returned to [facility]ni due to patient being in covid isolation. Is aware. Received telephone orders for daily CMP, CBC, d dimer, crp, and PO PRN tylenol suppository for fever of 101.
--- NOTE | 2021-05-08 17:53 | NUR ---
Page Sent promotional table spacer PAGER ID: [phone] MESSAGE: [phone] Marcio. Patient has not had anything to drink in the last 24 hours. Could possibly benefit from light hydration. Trialed pt on high flow and she desat to 78% and had to be put back on bipap. Janette [phone]
--- NOTE | 2021-05-08 18:00 | NUR ---
I received telephone orders from Dr. Flores to order D5+1/2NS @50
--- NOTE | 2021-05-08 18:22 | NUR ---
Problems reprioritized. Patient report given, questions answered & plan of care reviewed with Nathaly RN . Patient in no acute distress.
--- NOTE | 2021-05-08 18:25 | NUR ---
Patient in room PCU 3008. I have received report from Janette HUGHES at bedside and had the opportunity to ask questions and assume patient care.
[2021-05-08] MEDS: gabapentin 300mg capsule PO SCH (20:05)
[2021-05-08] MEDS: Melatonin 3mg tablet PO SCH (20:05)
[2021-05-08] MEDS: vancomycin/NS 1 GM ADD-VANTAGE 250 ML IV SCH (20:25)
[2021-05-08] MEDS: dextrose 5%-1/2 normal saline 1,000 ML IV SCH (22:01)
[2021-05-08] MEDS: cefepime 2g/NS 100ml ADVANTAGE 100 ML IV SCH (22:01)
[2021-05-09] VITALS (12 sets, daily range): BP systolic 91–146; BP diastolic 53–83
--- NOTE | 2021-05-09 06:07 | NUR ---
Problems reprioritized. Patient report given, questions answered & plan of care reviewed with Janette HUGHES at bedside.
--- NOTE | 2021-05-09 06:07 | NUR ---
Patient in room PCU 3008. I have received report from Nathaly HUGHES and had the opportunity to ask questions and assume patient care.
[2021-05-09] MEDS: pantoprazole 40mg Tablet.DR PO SCH (07:30)
[2021-05-09 07:35] LABS: BASOPHILS % (AUTO) 0.1 % (0-1); EOSINOPHILS % (AUTO) 0 % (0-6); HEMATOCRIT 40.4 % (35.0-45.0); HEMOGLOBIN 13.4 g/dl (12.0-16.0); LYMPHOCYTES # (AUTO) 0.2 X10'3 (1.1-4.8); LYMPHOCYTES % (AUTO) 1.2 % (21-51); MEAN CORPUSCULAR HEMOGLOBIN 32.6 PG (27.0-31.0); MEAN CORPUSCULAR HGB CONC 33.1 g/dL (33.0-36.5); MEAN CORPUSCULAR VOLUME 98.6 FL (78-98); MEAN PLATELET VOLUME 7.5 FL (7.4-10.4); MONOCYTES # (AUTO) 0.2 X10'3 (0-0.9); MONOCYTES % (AUTO) 1.2 % (2-12); NEUTROPHILS # (AUTO) 15.9 X10'3 (1.8-7.7); NEUTROPHILS % (AUTO) 97.5 % (42-75); PLATELET COUNT 408 X10'3 (140-440); RED BLOOD COUNT 4.09 X10'6 (4.20-5.60); RED CELL DISTRIBUTION WIDTH 14.8 % (11.5-14.5); WHITE BLOOD COUNT 16.3 X10'3 (4.5-11.0)
[2021-05-09 07:50] LABS: D-DIMER 3.61 MG/L FEU (0-0.50)
[2021-05-09 07:55] LABS: ALANINE AMINOTRANSFERASE 40 U/L (12-78); ALBUMIN 2.1 G/DL (3.4-5.0); ALBUMIN/GLOBULIN RATIO 0.4 (1.1-1.5); ALKALINE PHOSPHATASE 83 IU/L (46-116); ANION GAP 10 (8-16); ASPARTATE AMINO TRANSFERASE 26 U/L (10-37); BILIRUBIN,TOTAL 0.6 MG/DL (0.1-1.0); BLOOD UREA NITROGEN 33 MG/DL (7-18); CALCIUM 9.5 MG/DL (8.5-10.1); CHLORIDE 110 MMOL/L (99-107); GLUCOSE 125 MG/DL (70-104); POTASSIUM 4.1 MMOL/L (3.5-5.1); SODIUM 149 MMOL/L (135-145); TOTAL CARBON DIOXIDE 28.6 MMOL/L (24-32); TOTAL PROTEIN 7.6 G/DL (6.4-8.2); eGFR 49 ML/MIN
[2021-05-09] MEDS: OLANZapine 5mg rapidly disint. tablet PO SCH (08:00)
[2021-05-09] MEDS: baclofen 10mg tablet PO SCH ×2 (08:00→18:38)
[2021-05-09] MEDS: lactose-reduced food (Ensure High Protein) 237ml bottle PO SCH ×2 (08:00→13:00)
[2021-05-09] MEDS: docusate sodium 100mg/10ml UD cup PO SCH ×2 (08:00→18:37)
[2021-05-09] MEDS: allopurinol 100mg tablet PO SCH (08:00)
[2021-05-09] MEDS: FLUoxetine 20mg capsule PO SCH (08:00)
[2021-05-09] MEDS: ROPINIRole 1mg tablet PO SCH ×2 (08:00→18:38)
[2021-05-09] MEDS: oxybutynin 5mg tablet PO SCH ×2 (08:00→18:38)
[2021-05-09 08:15] LABS: C-REACTIVE PROTEIN 53.34 MG/DL (0.0-0.5)
[2021-05-09] MEDS: dexamethasone sod phosphate 10mg/ml inj IV SCH ×2 (09:31→20:14)
[2021-05-09] MEDS: cefepime 2g/NS 100ml ADVANTAGE 100 ML IV SCH ×2 (09:31→20:06)
[2021-05-09] MEDS: enoxaparin 40mg/0.4ml syringe SUBCUT SCH (09:31)
--- NOTE | 2021-05-09 10:45 | NUR ---
Page Sent promotional table spacer PAGER ID: [phone] MESSAGE: [phone] Mathieu. Patient HR in 130s since 1000. BP 134/72 Janette [phone]
--- NOTE | 2021-05-09 11:07 | NUR ---
I received telephone orders from Dr Flores to increase lovenox from 40 to 60 SQ BID, a new order for TPN and a dietary consult for TPN, placement for PICC line, BNP for 05/10/21, and to DC D5+1/2 NS when TPN is started. I did not receive any orders for patient HR in 130s for the last hour. is aware no new orders given.
--- NOTE | 2021-05-09 11:07 | NUR ---
Page to PICC RN [phone] Mathieu. Patient needs PICC today please Janette [phone]
--- NOTE | 2021-05-09 11:16 | NUR ---
Page Sent promotional table spacer PAGER ID: [phone] MESSAGE: [phone] Mathieu. Need PICC consent signed will come to you. Janette [phone]
--- NOTE | 2021-05-09 11:34 | NUR ---
Page to PICC RN 0149 Mathieu. PICC consent signed by RN. Please place PICC line. Thanks Janette [phone]
--- NOTE | 2021-05-09 12:42 | NUR ---
TPN Consult: Pt now NPO unable to tolerate PO intake w/ bipap dependence and respiratory status. TPN to start today following PICC line placement per EMR. Currently receiving D5/NS at 50ml/hr; likely to wean once PN initiated. LBM 05/07 large previously receiving PO colace prior to NPO status. CRP up to 53.34 this AM from prior 11.58 05/07. Will monitor for PN tolerance and adjustment needs as medically indicated. IF pt becomes more stable on bipap consider NG nutrition to optimize nutrition intake given functioning gut. Rec: 1. TPN per MD via PICC using 2:1 Clinimix E 5/20 at 70ml/hr goal w/ separate 100ml 20% intralipids to run at 8.33ml/hr for 12 hours each day. In total to provide 1680ml volume, 84g AA, 336g DEX (3.89mg/kg/min), and 1678 total kcals. 2. PALB/TG Q /; daily wts 3. monitor for PN tolerance 4. Bowel care per rx 5. IF respiratory status improves on bipap consider EN to optimize nutritions status 6. Once PO diet advancement; advance to regular diet and consider Ensure Enlive TIDWM instead of ensure high protein to optimize kcals/protein intake Addendum: 05/09/21 at [address] Amended: Links added.
--- NOTE | 2021-05-09 12:58 | NUR ---
Page Sent promotional table spacer PAGER ID: [phone] MESSAGE: [phone] Mathieu. Patient has positive blood cultures in the aerobic bottle after 18 hrs. It grew gram positive cocci in clusters from her right arm. Janette [phone]
--- NOTE | 2021-05-09 14:16 | NUR ---
Repeat page to PICC RN because she walked off the floor without giving pt PICC. She told me over the phone she would do it at 12 or 2. [phone] Mathieu. Patient still needs PICC placed. KHUSHBOO please Janette [phone]
[2021-05-09] MEDS ORDERED: magnesium 4gm in 100ml NS 100 ML IV PRN (15:35)
[2021-05-09] MEDS ORDERED: Dextrose 10%-water IV solution 1,000 ML IV PRN (15:35)
[2021-05-09] MEDS ORDERED: potassium Cl 20 mEq SR tablet PO PRN ×2 (15:35)
[2021-05-09] MEDS ORDERED: magnesium Cl slow-release 64mg tablet PO PRN (15:35)
[2021-05-09] MEDS ORDERED: potassium Cl 40MEQ/1/2NS 520ml 520 ML IV PRN ×2 (15:35)
[2021-05-09] MEDS ORDERED: magnesium 2GM in 50ml NS 50 ML IV PRN (15:35)
--- NOTE | 2021-05-09 15:53 | NUR ---
Pharmacy TC: Pt still pending PICC placement may possible need PPN today instead. PPN recs below in case to start. Rec: 1. TPN per MD via PICC using 2:1 Clinimix E 5/20 at 70ml/hr goal w/ separate 100ml 20% intralipids to run at 8.33ml/hr for 12 hours each day. In total to provide 1680ml volume, 84g AA, 336g DEX (3.89mg/kg/min), and 1678 total kcals. 2. IF PPN; 2:1 Clinimix E 4.25/5 at 75ml/hr goal w/ separate 250ml 20% intralipids to run at 20.83ml/hr for 12 hours each day. In total; to provide 1800ml volume, 77g AA, 90g DEX (1.04mg/kg/min), 50g lipids, and 1114 total kcals. 3. PALB/TG Q /; daily wts 4. monitor for PN tolerance 5. Bowel care per rx 6. IF respiratory status improves on bipap consider EN to optimize nutritions status 7. Once PO diet advancement; advance to regular diet and consider Ensure Enlive TIDWM instead of ensure high protein to optimize kcals/protein intake Addendum: 05/09/21 at [address] Amended: Links added. Addendum: 05/09/21 at [address] *CORRECTION* 2. IF PPN; 2:1 Clinimix E 4.25/10 at 75ml/hr goal w/ separate 250ml 20% intralipids to run at 20.83ml/hr for 12 hours each day. In total; to provide 1800ml volume, 77g AA, 180g DEX (2.08mg/kg/min), 50g lipids, and 1420 total kcals.
--- NOTE | 2021-05-09 16:01 | NUR ---
Page Sent promotional table spacer PAGER ID: [phone] MESSAGE: [phone] lo for the 24 hour urine collection and I&O for critically ill ? Janette [phone]
--- NOTE | 2021-05-09 16:04 | NUR ---
I recieved telephone orders to place lo for critically ill and for 24 hour urine test.
[2021-05-09] MEDS ORDERED: LIDOcaine 2% 10ml TOPICAL JELLY (Urojet) TP ONE (16:05)
[2021-05-09 16:21] LABS: MAGNESIUM 2.7 MG/DL (1.5-2.4); PHOSPHORUS 3.2 MG/DL (2.3-4.5); PREALBUMIN 8.1 MG/DL (19-36)
[2021-05-09] MEDS ORDERED: MVI, adult No.4 with vit. K 5 ML, ZINC/COPPER/MANGANESE/SELENIUM 0.5 ML, chromic chlori... IV SCH ×4 (17:00)
--- NOTE | 2021-05-09 18:24 | NUR ---
lo placed at 1745 and 24 hour urine collection started. Oral care performed.
--- NOTE | 2021-05-09 18:25 | NUR ---
Problems reprioritized. Patient report given, questions answered & plan of care reviewed with Nathaly RN. Patient in no acute distress.
--- NOTE | 2021-05-09 18:27 | NUR ---
Patient in room PCU 3008. I have received report from Janette HUGHES at bedside and had the opportunity to ask questions and assume patient care.
[2021-05-09] MEDS: fat emulsion IV bag 250 ML IV SCH (18:37)
[2021-05-09] MEDS: MVI, adult No.4 with vit. K 10 ML, ZINC/COPPER/MANGANESE/SELENIUM 1 ML, chromic chlorid... IV SCH ×4 (18:37)
[2021-05-09] MEDS: Melatonin 3mg tablet PO SCH (18:38)
[2021-05-09] MEDS: gabapentin 300mg capsule PO SCH (18:38)
[2021-05-09] MEDS: K and/or MAG REPLACEMENT MC SCH (18:39)
[2021-05-09] MEDS: vancomycin/NS 1 GM ADD-VANTAGE 250 ML IV SCH (19:56)
[2021-05-09] MEDS ORDERED: fat emulsion 20% inj. 100 ML IV SCH (20:00)
[2021-05-09] MEDS ORDERED: MVI, adult No.4 with vit. K 10 ML, ZINC/COPPER/MANGANESE/SELENIUM 1 ML, chromic chlorid... IV SCH ×4 (20:00)
[2021-05-09] MEDS: enoxaparin 60mg/0.6ml syringe SUBCUT SCH (20:14)
[2021-05-10] VITALS (12 sets, daily range): BP systolic 119–145; BP diastolic 66–94
--- NOTE | 2021-05-10 06:25 | NUR ---
Problems reprioritized. Patient report given, questions answered & plan of care reviewed with Lea RN at bedside.
--- NOTE | 2021-05-10 06:26 | NUR ---
Patient in room PCU 3008. I have received report from ELLEN BERGER, and had the opportunity to ask questions and assume patient care.
[2021-05-10] MEDS: pantoprazole 40mg Tablet.DR PO SCH (07:30)
[2021-05-10] MEDS: oxybutynin 5mg tablet PO SCH ×2 (08:00→20:00)
[2021-05-10] MEDS: K and/or MAG REPLACEMENT MC SCH ×2 (08:00→20:00)
[2021-05-10] MEDS: allopurinol 100mg tablet PO SCH (08:00)
[2021-05-10] MEDS: FLUoxetine 20mg capsule PO SCH (08:00)
[2021-05-10] MEDS: docusate sodium 100mg/10ml UD cup PO SCH ×2 (08:00→20:00)
[2021-05-10] MEDS: OLANZapine 5mg rapidly disint. tablet PO SCH (08:00)
[2021-05-10] MEDS: baclofen 10mg tablet PO SCH ×2 (08:00→20:00)
[2021-05-10] MEDS: ROPINIRole 1mg tablet PO SCH ×2 (08:00→20:00)
[2021-05-10] MEDS: cefepime 2g/NS 100ml ADVANTAGE 100 ML IV SCH ×2 (08:24→21:53)
[2021-05-10] MEDS: dexamethasone sod phosphate 10mg/ml inj IV SCH ×2 (08:24→19:57)
[2021-05-10] MEDS: enoxaparin 60mg/0.6ml syringe SUBCUT SCH ×2 (08:34→19:56)
[2021-05-10] MEDS: MVI, adult No.4 with vit. K 10 ML, ZINC/COPPER/MANGANESE/SELENIUM 1 ML, chromic chlorid... IV SCH ×4 (09:30)
[2021-05-10 09:52] LABS: BASOPHILS % (AUTO) 0.1 % (0-1); EOSINOPHILS % (AUTO) 0 % (0-6); HEMATOCRIT 35.6 % (35.0-45.0); HEMOGLOBIN 11.8 g/dl (12.0-16.0); LYMPHOCYTES # (AUTO) 0.3 X10'3 (1.1-4.8); LYMPHOCYTES % (AUTO) 1.7 % (21-51); MEAN CORPUSCULAR HEMOGLOBIN 32.6 PG (27.0-31.0); MEAN CORPUSCULAR HGB CONC 33.2 g/dL (33.0-36.5); MEAN CORPUSCULAR VOLUME 98.2 FL (78-98); MEAN PLATELET VOLUME 7.6 FL (7.4-10.4); MONOCYTES # (AUTO) 0.3 X10'3 (0-0.9); MONOCYTES % (AUTO) 1.8 % (2-12); NEUTROPHILS # (AUTO) 16.9 X10'3 (1.8-7.7); NEUTROPHILS % (AUTO) 96.4 % (42-75); PLATELET COUNT 368 X10'3 (140-440); RED BLOOD COUNT 3.62 X10'6 (4.20-5.60); RED CELL DISTRIBUTION WIDTH 14.9 % (11.5-14.5); WHITE BLOOD COUNT 17.5 X10'3 (4.5-11.0)
[2021-05-10 10:05] LABS: D-DIMER 3.78 MG/L FEU (0-0.50)
--- NOTE | 2021-05-10 10:10 | NUR ---
PAGE SENT [phone], MARI ELLISON IS WAITING FOR PICC PLACEMENT. THANK YOU. RIVAS
[2021-05-10 10:13] LABS: ALANINE AMINOTRANSFERASE 35 U/L (12-78); ALBUMIN 1.6 G/DL (3.4-5.0); ALBUMIN/GLOBULIN RATIO 0.2 (1.1-1.5); ALKALINE PHOSPHATASE 104 IU/L (46-116); ANION GAP 10 (8-16); ASPARTATE AMINO TRANSFERASE 22 U/L (10-37); BILIRUBIN,TOTAL 0.4 MG/DL (0.1-1.0); BLOOD UREA NITROGEN 37 MG/DL (7-18); BUN/CREATININE RATIO 37.8 (6.6-38.0); CALCIUM 9.3 MG/DL (8.5-10.1); CHLORIDE 113 MMOL/L (99-107); CREATININE 0.98 MG/DL (0.40-0.90); GLUCOSE 125 MG/DL (70-104); MAGNESIUM 2.8 MG/DL (1.5-2.4); PHOSPHORUS 3.2 MG/DL (2.3-4.5); POTASSIUM 4.2 MMOL/L (3.5-5.1); PREALBUMIN 6.5 MG/DL (19-36); SODIUM 150 MMOL/L (135-145); TOTAL CARBON DIOXIDE 27.5 MMOL/L (24-32); TOTAL PROTEIN 8.1 G/DL (6.4-8.2); TRIGLYCERIDES 45 MG/DL (20-135); eGFR 56 ML/MIN
--- NOTE | 2021-05-10 10:17 | NUR ---
PAGE SENT PAGER ID: [phone] MESSAGE: [phone] Ken RAMIREZ DIMER 78 THANK YOU. RIVAS [phone]
[2021-05-10 10:25] LABS: C-REACTIVE PROTEIN 46.72 MG/DL (0.0-0.5)
[2021-05-10] MEDS: dextrose 5%-1/2 normal saline 1,000 ML IV SCH ×2 (10:32→19:58)
--- NOTE | 2021-05-10 11:33 | NUR ---
PAGE SENT PAGER ID: [phone] MESSAGE: [id number], MARI ELLISON, NA - 150, MG - 2.8 THANK YOU, RIVAS, X [phone]
[2021-05-10] MEDS: fat emulsion IV bag 250 ML IV SCH (12:39)
--- NOTE | 2021-05-10 13:38 | NUR ---
F/u 05/10: Pt s/p PICC placement today w/ TPN to start; recs below. Rec: 1. TPN per MD via PICC using 2:1 Clinimix E 5/20 at 70ml/hr goal w/ separate 100ml 20% intralipids to run at 8.33ml/hr for 12 hours each day. In total to provide 1680ml volume, 84g AA, 336g DEX (3.89mg/kg/min), and 1678 total kcals. 2. PALB/TG Q /; daily wts 3. monitor for PN tolerance 4. Bowel care per rx 5. IF respiratory status improves on bipap consider EN to optimize nutritions status 6. Once PO diet advancement; advance to regular diet and consider Ensure Enlive TIDWM instead of ensure high protein to optimize kcals/protein intake Addendum: 05/10/21 at [address] Amended: Links added.
--- NOTE | 2021-05-10 18:19 | NUR ---
Problems reprioritized. Patient report given, questions answered & plan of care reviewed with ELLEN MILAN.
--- NOTE | 2021-05-10 18:32 | NUR ---
Patient in room PCU 3008. I have received report from Lea HUGHES and had the opportunity to ask questions and assume patient care.
[2021-05-10 19:13] LABS: UREA NITROGEN 24HR,URINE 12.6 GM/24HR (7-20)
[2021-05-10] MEDS: vancomycin/NS 1 GM ADD-VANTAGE 250 ML IV SCH (19:58)
[2021-05-10] MEDS: lactobacillus rhamnosus 10,000 MMU CELLS/CAPSULE PO SCH (20:00)
[2021-05-10] MEDS ORDERED: MVI, adult No.4 with vit. K 5 ML, ZINC/COPPER/MANGANESE/SELENIUM 0.5 ML, chromic chlori... IV SCH ×4 (20:00)
[2021-05-10] MEDS: gabapentin 300mg capsule PO SCH (21:00)
[2021-05-10] MEDS: Melatonin 3mg tablet PO SCH (21:00)
[2021-05-10] MEDS: fat emulsion 20% inj. 100 ML IV SCH (21:54)
[2021-05-11 02:00] VITALS: BP 146/71
[2021-05-11] MEDS ORDERED: bisacodyl 10mg suppository rectal RC PRN (04:25)
[2021-05-11] MEDS: dextrose 5%-1/2 normal saline 1,000 ML IV SCH (04:34)
[2021-05-11 05:19] LABS: BASOPHILS # (AUTO) 0.1 X10'3 (0-0.2); BASOPHILS % (AUTO) 0.3 % (0-1); EOSINOPHILS % (AUTO) 0 % (0-6); HEMATOCRIT 34.1 % (35.0-45.0); HEMOGLOBIN 11.2 g/dl (12.0-16.0); LYMPHOCYTES # (AUTO) 0.2 X10'3 (1.1-4.8); LYMPHOCYTES % (AUTO) 0.9 % (21-51); MEAN CORPUSCULAR HEMOGLOBIN 32.4 PG (27.0-31.0); MEAN CORPUSCULAR HGB CONC 32.8 g/dL (33.0-36.5); MEAN CORPUSCULAR VOLUME 98.9 FL (78-98); MEAN PLATELET VOLUME 7.5 FL (7.4-10.4); MONOCYTES # (AUTO) 0.5 X10'3 (0-0.9); MONOCYTES % (AUTO) 2.7 % (2-12); NEUTROPHILS # (AUTO) 17.5 X10'3 (1.8-7.7); NEUTROPHILS % (AUTO) 96.1 % (42-75); PLATELET COUNT 317 X10'3 (140-440); RED BLOOD COUNT 3.45 X10'6 (4.20-5.60); RED CELL DISTRIBUTION WIDTH 14.9 % (11.5-14.5); WHITE BLOOD COUNT 18.2 X10'3 (4.5-11.0)
[2021-05-11 05:36] LABS: D-DIMER 2.27 MG/L FEU (0-0.50)
[2021-05-11 05:38] LABS: ALANINE AMINOTRANSFERASE 43 U/L (12-78); ALBUMIN 1.6 G/DL (3.4-5.0); ALBUMIN/GLOBULIN RATIO 0.3 (1.1-1.5); ALKALINE PHOSPHATASE 101 IU/L (46-116); ANION GAP 11 (8-16); ASPARTATE AMINO TRANSFERASE 58 U/L (10-37); BILIRUBIN,TOTAL 0.2 MG/DL (0.1-1.0); BLOOD UREA NITROGEN 36 MG/DL (7-18); BUN/CREATININE RATIO 42.9 (6.6-38.0); C-REACTIVE PROTEIN 20.97 MG/DL (0.0-0.5); CALCIUM 9.1 MG/DL (8.5-10.1); CHLORIDE 114 MMOL/L (99-107); CREATININE 0.84 MG/DL (0.40-0.90); GLUCOSE 161 MG/DL (70-104); MAGNESIUM 2.5 MG/DL (1.5-2.4); PHOSPHORUS 2.5 MG/DL (2.3-4.5); POTASSIUM 3.9 MMOL/L (3.5-5.1); SODIUM 151 MMOL/L (135-145); TOTAL CARBON DIOXIDE 26.5 MMOL/L (24-32); TOTAL PROTEIN 6.9 G/DL (6.4-8.2); eGFR 67 ML/MIN
[2021-05-11 06:00] VITALS: BP 115/76
--- NOTE | 2021-05-11 06:10 | NUR ---
Patient in room PCU 3008. I have received report from Cherrie HUGHES and had the opportunity to ask questions and assume patient care.
--- NOTE | 2021-05-11 06:31 | NUR ---
Problems reprioritized. Patient report given, questions answered & plan of care reviewed with Diego HUGHES.
[2021-05-11] MEDS: pantoprazole 40mg Tablet.DR PO SCH (07:30)
[2021-05-11] MEDS: lactobacillus rhamnosus 10,000 MMU CELLS/CAPSULE PO SCH ×2 (08:00→20:00)
[2021-05-11] MEDS: docusate sodium 100mg/10ml UD cup PO SCH ×2 (08:00→20:00)
[2021-05-11] MEDS: oxybutynin 5mg tablet PO SCH ×2 (08:00→20:00)
[2021-05-11] MEDS: FLUoxetine 20mg capsule PO SCH (08:00)
[2021-05-11] MEDS: baclofen 10mg tablet PO SCH ×2 (08:00→20:00)
[2021-05-11] MEDS: OLANZapine 5mg rapidly disint. tablet PO SCH (08:00)
[2021-05-11] MEDS: ROPINIRole 1mg tablet PO SCH ×2 (08:00→20:00)
[2021-05-11] MEDS: allopurinol 100mg tablet PO SCH (08:00)
[2021-05-11] MEDS: K and/or MAG REPLACEMENT MC SCH ×2 (08:00→20:00)
[2021-05-11] MEDS: enoxaparin 60mg/0.6ml syringe SUBCUT SCH ×2 (08:02→21:26)
[2021-05-11] MEDS: dexamethasone sod phosphate 10mg/ml inj IV SCH ×2 (08:03→20:00)
[2021-05-11] MEDS: cefepime 2g/NS 100ml ADVANTAGE 100 ML IV SCH ×2 (08:03→21:05)
[2021-05-11] MEDS: MVI, adult No.4 with vit. K 5 ML, ZINC/COPPER/MANGANESE/SELENIUM 0.5 ML, chromic chlori... IV SCH ×8 (12:03→21:49)
--- NOTE | 2021-05-11 14:15 | NUR ---
Jaron Consult: Jaron Thompson w/ skin intact per EMR. Addendum: 05/11/21 at [address] Amended: Links added.
[2021-05-11 15:00] VITALS: BP 144/80
[2021-05-11 18:00] VITALS: BP 130/65
[2021-05-11] MEDS ORDERED: VANCOMYCIN LEVEL IV ONE (18:30)
--- NOTE | 2021-05-11 18:42 | NUR ---
Problems reprioritized. Patient report given, questions answered & plan of care reviewed with Brianna HUGHES.
--- NOTE | 2021-05-11 19:20 | NUR ---
Pt's Vanco trough drawn through PICC line. Wrong time put on vile, 0550. Correct time 1750. Lab aware and is manually entering new time adjustment.
--- NOTE | 2021-05-11 19:43 | NUR ---
Problems reprioritized. Patient report given, questions answered & plan of care reviewed with PIYUSH HUGHES.
[2021-05-11] MEDS: gabapentin 300mg capsule PO SCH (21:00)
[2021-05-11] MEDS: Melatonin 3mg tablet PO SCH (21:00)
[2021-05-11] MEDS: vancomycin/NS 1 GM ADD-VANTAGE 250 ML IV SCH (21:05)
[2021-05-11] MEDS: fat emulsion 20% inj. 100 ML IV SCH (21:05)
[2021-05-11] MEDS ORDERED: dexamethasone 4mg/ml inj IV ONE (21:25)
[2021-05-11 22:00] VITALS: BP 136/86
[2021-05-12 02:00] VITALS: BP 138/77
[2021-05-12 06:00] VITALS: BP 151/86
[2021-05-12 06:15] LABS: D-DIMER 1.72 MG/L FEU (0-0.50)
--- NOTE | 2021-05-12 06:34 | NUR ---
Problems reprioritized. Patient report given, questions answered & plan of care reviewed with ELLEN Turpin.
--- NOTE | 2021-05-12 06:46 | NUR ---
Patient in room ORTHO 4006. I have received report from ELLEN Giraldo and had the opportunity to ask questions and assume patient care.
[2021-05-12] MEDS ORDERED: fat emulsion IV bag 100 ML IV SCH (07:48)
[2021-05-12] MEDS: allopurinol 100mg tablet PO SCH ×2 (08:00→09:11)
[2021-05-12] MEDS: oxybutynin 5mg tablet PO SCH ×3 (08:00→18:38)
[2021-05-12] MEDS: baclofen 10mg tablet PO SCH ×3 (08:00→18:39)
[2021-05-12] MEDS: docusate sodium 100mg/10ml UD cup PO SCH ×2 (08:00→18:38)
[2021-05-12] MEDS: lactobacillus rhamnosus 10,000 MMU CELLS/CAPSULE PO SCH ×3 (08:00→18:38)
[2021-05-12] MEDS: OLANZapine 5mg rapidly disint. tablet PO SCH ×2 (08:00→09:10)
[2021-05-12] MEDS: FLUoxetine 20mg capsule PO SCH ×2 (08:00→09:11)
[2021-05-12] MEDS: ROPINIRole 1mg tablet PO SCH ×3 (08:00→18:39)
[2021-05-12] MEDS: K and/or MAG REPLACEMENT MC SCH ×2 (08:00→18:38)
[2021-05-12] MEDS: cefepime 2g/NS 100ml ADVANTAGE 100 ML IV SCH ×2 (09:09→20:38)
[2021-05-12] MEDS: enoxaparin 60mg/0.6ml syringe SUBCUT SCH ×2 (09:10→20:39)
[2021-05-12] MEDS: dexamethasone sod phosphate 10mg/ml inj IV SCH ×2 (09:11→20:38)
[2021-05-12] MEDS: pantoprazole 40mg Tablet.DR PO SCH ×2 (09:12→10:20)
[2021-05-12 10:00] VITALS: BP 159/89
--- NOTE | 2021-05-12 10:07 | NUR ---
Reassessment: Pt continues with whole face Cpap per RT documentation. TPN remains appropriate at this time. Noted no electrolytes on this mornings lab draw though serum Na elevated at 151 MMOL/L 05/11 as well as serum mag (2.5 mg/dL). Of note pt was receiving D5/NS which was discontinued 05/11 and serum mag is slightly down from 05/10 (2.8 mg/dL). Recommend continuing with current TPN recommendations though will continue to follow trends in electrolytes and monitor need for non-electrolyte formula. LBM 05/11, previously without a BM since 05/04. Noted pt received first dose of PRN Dulcolax suppository 05/11. Routine bowel care available though held d/t NPO status. Will continue to follow closely. Rec: 1. TPN per MD via PICC using 2:1 Clinimix E 02/08 at 70 ml/hr with separate 100 ml 20% intralipids to run at 8.33 ml/hr for 12 hours each day. In total to provide 1780 ml total volume/day, 84 g AA, 336 g dext (3.89 mg/kg/min dext load), and 1678 total kcals. 2. PALB/TG q /; daily wts 3. Monitor electrolytes and need to transition to Clinimix non-E 4. Routine bowel care 5. IF respiratory status improves consider transitioning to EN for gut stimulation and to optimize nutrient intake with increased protein needs 6. Advance to regular diet as medically indicated 7. Once diet advances consider Ensure Enlive TIDWM to optimize kcal/protein intake Addendum: 05/12/21 at [address] Amended: Links added.
--- NOTE | 2021-05-12 10:42 | NUR ---
Page Sent PAGER ID: [phone] MESSAGE: [id number] Regarding RM 4006 MathieuTony-Pt does not have orders for CBC/CMP, nor Insulin protocol despite being on TPN. Thanks
[2021-05-12 11:11] LABS: BASOPHILS % (AUTO) 0.2 % (0-1); EOSINOPHILS % (AUTO) 0 % (0-6); HEMATOCRIT 36.2 % (35.0-45.0); HEMOGLOBIN 11.8 g/dl (12.0-16.0); LYMPHOCYTES # (AUTO) 0.2 X10'3 (1.1-4.8); LYMPHOCYTES % (AUTO) 1.3 % (21-51); MEAN CORPUSCULAR HEMOGLOBIN 31.9 PG (27.0-31.0); MEAN CORPUSCULAR HGB CONC 32.5 g/dL (33.0-36.5); MEAN PLATELET VOLUME 7.5 FL (7.4-10.4); MONOCYTES # (AUTO) 0.6 X10'3 (0-0.9); MONOCYTES % (AUTO) 3.1 % (2-12); NEUTROPHILS # (AUTO) 16.9 X10'3 (1.8-7.7); NEUTROPHILS % (AUTO) 95.4 % (42-75); PLATELET COUNT 338 X10'3 (140-440); RED CELL DISTRIBUTION WIDTH 14.6 % (11.5-14.5); WHITE BLOOD COUNT 17.7 X10'3 (4.5-11.0)
[2021-05-12 11:18] LABS: ANION GAP 9 (8-16); BLOOD UREA NITROGEN 38 MG/DL (7-18); CHLORIDE 117 MMOL/L (99-107); CREATININE 0.82 MG/DL (0.40-0.90); GLUCOSE 152 MG/DL (70-104); POTASSIUM 4.2 MMOL/L (3.5-5.1); SODIUM 150 MMOL/L (135-145); TOTAL CARBON DIOXIDE 23.6 MMOL/L (24-32)
[2021-05-12 11:19] LABS: ALBUMIN 1.6 G/DL (3.4-5.0); BUN/CREATININE RATIO 46.3 (6.6-38.0); CALCIUM 9.4 MG/DL (8.5-10.1); eGFR 69 ML/MIN
[2021-05-12] MEDS ORDERED: furosemide 20 MG/2 ML vial IV ONE (13:25)
[2021-05-12 14:00] VITALS: BP 145/84
[2021-05-12] MEDS: vancomycin/NS 1 GM ADD-VANTAGE 250 ML IV SCH (15:01)
[2021-05-12] MEDS: MVI, adult No.4 with vit. K 5 ML, ZINC/COPPER/MANGANESE/SELENIUM 0.5 ML, chromic chlori... IV SCH ×4 (16:28)
--- NOTE | 2021-05-12 18:22 | NUR ---
Problems reprioritized. Patient report given, ELLEN Giraldo questions answered & plan of care reviewed with .
[2021-05-12] MEDS: Melatonin 3mg tablet PO SCH (18:39)
[2021-05-12] MEDS: gabapentin 300mg capsule PO SCH (18:40)
[2021-05-12] MEDS: fat emulsion 20% inj. 100 ML IV SCH (20:38)
[2021-05-12 22:00] VITALS: BP 118/64
[2021-05-13] MEDS: vancomycin/NS 1 GM ADD-VANTAGE 250 ML IV SCH ×2 (01:48→13:41)
[2021-05-13 02:00] VITALS: BP 132/69
[2021-05-13] MEDS: MVI, adult No.4 with vit. K 5 ML, ZINC/COPPER/MANGANESE/SELENIUM 0.5 ML, chromic chlori... IV SCH ×8 (05:44→19:32)
[2021-05-13 06:38] LABS: ALBUMIN 1.7 G/DL (3.4-5.0); ANION GAP 8 (8-16); BLOOD UREA NITROGEN 40 MG/DL (7-18); CALCIUM 9.3 MG/DL (8.5-10.1); CHLORIDE 113 MMOL/L (99-107); GLUCOSE 146 MG/DL (70-104); POTASSIUM 4.2 MMOL/L (3.5-5.1); SODIUM 149 MMOL/L (135-145); TOTAL CARBON DIOXIDE 27.7 MMOL/L (24-32); eGFR 71 ML/MIN
--- NOTE | 2021-05-13 06:51 | NUR ---
Patient in room ORTHO 4006. I have received report from ELLEN PICKETT and had the opportunity to ask questions and assume patient care.
[2021-05-13] MEDS: pantoprazole 40mg Tablet.DR PO SCH (07:30)
[2021-05-13] MEDS: K and/or MAG REPLACEMENT MC SCH ×2 (08:00→20:00)
[2021-05-13] MEDS: docusate sodium 100mg/10ml UD cup PO SCH ×2 (08:00→20:00)
[2021-05-13] MEDS: ROPINIRole 1mg tablet PO SCH ×2 (08:00→20:00)
[2021-05-13] MEDS: allopurinol 100mg tablet PO SCH (08:00)
[2021-05-13] MEDS: oxybutynin 5mg tablet PO SCH ×2 (08:00→20:00)
[2021-05-13] MEDS: OLANZapine 5mg rapidly disint. tablet PO SCH (08:00)
[2021-05-13] MEDS ORDERED: MESSAGE TO NURSING IV SCH (08:00)
[2021-05-13] MEDS: FLUoxetine 20mg capsule PO SCH (08:00)
[2021-05-13] MEDS: baclofen 10mg tablet PO SCH ×2 (08:00→20:00)
[2021-05-13] MEDS: lactobacillus rhamnosus 10,000 MMU CELLS/CAPSULE PO SCH ×2 (08:00→20:00)
[2021-05-13] MEDS: enoxaparin 60mg/0.6ml syringe SUBCUT SCH ×2 (09:04→20:34)
[2021-05-13] MEDS: cefepime 2g/NS 100ml ADVANTAGE 100 ML IV SCH ×2 (09:04→20:29)
[2021-05-13] MEDS: dexamethasone sod phosphate 10mg/ml inj IV SCH ×2 (09:05→20:27)
[2021-05-13 09:45] LABS: BASOPHILS % (AUTO) 0.2 % (0-1); EOSINOPHILS % (AUTO) 0 % (0-6); HEMATOCRIT 37.8 % (35.0-45.0); HEMOGLOBIN 12.5 g/dl (12.0-16.0); LYMPHOCYTES # (AUTO) 0.3 X10'3 (1.1-4.8); LYMPHOCYTES % (AUTO) 1.9 % (21-51); MEAN CORPUSCULAR HEMOGLOBIN 32.6 PG (27.0-31.0); MEAN CORPUSCULAR HGB CONC 33.1 g/dL (33.0-36.5); MEAN CORPUSCULAR VOLUME 98.3 FL (78-98); MEAN PLATELET VOLUME 8.6 FL (7.4-10.4); MONOCYTES # (AUTO) 0.4 X10'3 (0-0.9); MONOCYTES % (AUTO) 3.2 % (2-12); NEUTROPHILS % (AUTO) 94.7 % (42-75); PLATELET COUNT 305 X10'3 (140-440); RED BLOOD COUNT 3.84 X10'6 (4.20-5.60); RED CELL DISTRIBUTION WIDTH 14.6 % (11.5-14.5); WHITE BLOOD COUNT 13.7 X10'3 (4.5-11.0)
[2021-05-13 10:00] VITALS: BP 137/76
[2021-05-13 14:00] VITALS: BP 149/73
[2021-05-13 18:00] VITALS: BP 139/79
--- NOTE | 2021-05-13 18:36 | NUR ---
Problems reprioritized. Patient report given, questions answered & plan of care reviewed with ELLEN THOMAS.
[2021-05-13] MEDS: Melatonin 3mg tablet PO SCH (21:00)
[2021-05-13] MEDS: gabapentin 300mg capsule PO SCH (21:00)
[2021-05-13] MEDS: fat emulsion 20% inj. 100 ML IV SCH (21:40)
[2021-05-13 22:00] VITALS: BP 107/62
[2021-05-13] MEDS: LORazepam 2 mg/ml vial IV PRN (22:26)
[2021-05-14] MEDS ORDERED: VANCOMYCIN LEVEL IV ONE (01:30)
[2021-05-14 02:00] VITALS: BP 120/77
[2021-05-14] MEDS: vancomycin/NS 1 GM ADD-VANTAGE 250 ML IV SCH (02:01)
[2021-05-14 06:00] VITALS: BP 172/88
--- NOTE | 2021-05-14 06:28 | NUR ---
Patient in room ORTHO 4006. I have received report from ELLEN THOMAS and had the opportunity to ask questions and assume patient care.
[2021-05-14] MEDS: cefepime 2g/NS 100ml ADVANTAGE 100 ML IV SCH (07:04)
[2021-05-14] MEDS: enoxaparin 60mg/0.6ml syringe SUBCUT SCH ×2 (07:04→20:51)
[2021-05-14] MEDS: dexamethasone sod phosphate 10mg/ml inj IV SCH ×2 (07:05→20:53)
[2021-05-14] MEDS: pantoprazole 40mg Tablet.DR PO SCH (07:30)
[2021-05-14] MEDS: K and/or MAG REPLACEMENT MC SCH ×2 (08:00→20:00)
[2021-05-14] MEDS: allopurinol 100mg tablet PO SCH (08:00)
[2021-05-14] MEDS: baclofen 10mg tablet PO SCH ×2 (08:00→20:00)
[2021-05-14] MEDS: FLUoxetine 20mg capsule PO SCH (08:00)
[2021-05-14] MEDS: oxybutynin 5mg tablet PO SCH ×2 (08:00→20:00)
[2021-05-14] MEDS: lactobacillus rhamnosus 10,000 MMU CELLS/CAPSULE PO SCH ×2 (08:00→20:00)
[2021-05-14] MEDS: OLANZapine 5mg rapidly disint. tablet PO SCH (08:00)
[2021-05-14] MEDS: ROPINIRole 1mg tablet PO SCH ×2 (08:00→20:00)
[2021-05-14] MEDS: docusate sodium 100mg/10ml UD cup PO SCH ×2 (08:00→20:00)
[2021-05-14 10:00] VITALS: BP 135/79
[2021-05-14] MEDS: MVI, adult No.4 with vit. K 5 ML, ZINC/COPPER/MANGANESE/SELENIUM 0.5 ML, chromic chlori... IV SCH ×4 (11:18)
[2021-05-14 12:18] LABS: ALANINE AMINOTRANSFERASE 75 U/L (12-78); ALBUMIN 1.9 G/DL (3.4-5.0); ALBUMIN/GLOBULIN RATIO 0.3 (1.1-1.5); ALKALINE PHOSPHATASE 82 IU/L (46-116); ANION GAP 12 (8-16); ASPARTATE AMINO TRANSFERASE 37 U/L (10-37); BILIRUBIN,TOTAL 0.4 MG/DL (0.1-1.0); BLOOD UREA NITROGEN 36 MG/DL (7-18); BUN/CREATININE RATIO 50.7 (6.6-38.0); CALCIUM 9.8 MG/DL (8.5-10.1); CHLORIDE 108 MMOL/L (99-107); CREATININE 0.71 MG/DL (0.40-0.90); GLUCOSE 140 MG/DL (70-104); MAGNESIUM 2.5 MG/DL (1.5-2.4); PHOSPHORUS 3.7 MG/DL (2.3-4.5); POTASSIUM 5.2 MMOL/L (3.5-5.1); PREALBUMIN 29.3 MG/DL (19-36); SODIUM 142 MMOL/L (135-145); TOTAL PROTEIN 7.8 G/DL (6.4-8.2); TRIGLYCERIDES 100 MG/DL (20-135); VANCOMYCIN,RANDOM 23.7 UG/ML; eGFR 81 ML/MIN
--- NOTE | 2021-05-14 12:58 | NUR ---
F/u 05/14: Pt tolerating TPN at goal w/ PALB 29.3 WNL. K 5.2 this AM though serum Na 142 this AM down from 151 two days ago. Will monitor for TPN tolerance and adjustment needs w/ current electrolyte-containing formula. LBM 05/11 received PRN dulcolax 05/11; may benefit from routine bowel care if constipation persists. Will continue to monitor. Rec: 1. TPN per MD via PICC using 2:1 Clinimix E 02/08 at 70 ml/hr with separate 100 ml 20% intralipids to run at 8.33 ml/hr for 12 hours each day. In total to provide 1780 ml total volume/day, 84 g AA, 336 g dext (3.89 mg/kg/min dext load), and 1678 total kcals. 2. PALB/TG q /; daily wts 3. Monitor electrolytes and need to transition to Clinimix non-E 4. Routine bowel care 5. IF respiratory status improves consider transitioning to EN for gut stimulation and to optimize nutrient intake with increased protein needs 6. Advance to regular diet as medically indicated 7. Once diet advances consider Ensure Enlive TIDWM to optimize kcal/protein intake Addendum: 05/14/21 at [address] Amended: Links added.
[2021-05-14] MEDS ORDERED: VANCOmycin 1250MG/NS 250ml Bag 250 ML IV SCH (14:00)
[2021-05-14 14:28] LABS: D-DIMER 1.83 MG/L FEU (0-0.50)
--- NOTE | 2021-05-14 15:30 | NUR ---
Page Sent PAGER ID: [phone] MESSAGE: ALECIA 1746 RE: MARI ELLISON [phone] [employer] COMMUNICATED TODAY THAT PT IS ALLERGIC TO VANCOMYCIN, BUT PT HAS BEEN GETTING MED FOR 2 DAYS WITHOUT REACTIONS. SHOULD I CONTINUE TO GIVE PT MED? THANK YOU
--- NOTE | 2021-05-14 18:35 | NUR ---
Problems reprioritized. Patient report given, questions answered & plan of care reviewed with ELLEN DUGAN.
[2021-05-14 19:00] VITALS: BP 154/90
--- NOTE | 2021-05-14 19:00 | NUR ---
PT O2 SAT 80-82%,ON C-PAP 100% FIO2.REPOSITIONED AND CHECKED MASK FOR LEAKING NO LEAK.O2 STILL THE SAME,PAGED RT. RT CHANGED CPAP SETTING TO BIPAP O2 SAT STILL LOW 79-80%.PAGED DR. GEIGER WAITING FOR HER CALL.
--- NOTE | 2021-05-14 20:05 | NUR ---
DR. GEIGER HERE,WILL TRANSFER PT TO ICU.SHE ALREADY CALLED NURSING SUP AND ELECTRO MECHANICAL DESIGNER.PT O2 SAT STILL ON 80'S.
[2021-05-14] MEDS ORDERED: furosemide 40mg/4ml inj IV ONE (20:10)
[2021-05-14] MEDS: fat emulsion 20% inj. 100 ML IV SCH (20:51)
[2021-05-14] MEDS: gabapentin 300mg capsule PO SCH (21:00)
[2021-05-14] MEDS: Melatonin 3mg tablet PO SCH (21:00)
[2021-05-14 22:00] VITALS: BP 129/79
[2021-05-15] MEDS: MVI, adult No.4 with vit. K 5 ML, ZINC/COPPER/MANGANESE/SELENIUM 0.5 ML, chromic chlori... IV SCH ×8 (01:29→17:05)
[2021-05-15 01:45] VITALS: BP 106/53
[2021-05-15 06:00] VITALS: BP 126/75
--- NOTE | 2021-05-15 06:55 | NUR ---
Patient in room ORTHO 4006. I have received report from ELLEN DUGAN and had the opportunity to ask questions and assume patient care.
[2021-05-15] MEDS: pantoprazole 40mg Tablet.DR PO SCH (07:30)
[2021-05-15] MEDS: baclofen 10mg tablet PO SCH ×2 (08:00→20:00)
[2021-05-15] MEDS: lactobacillus rhamnosus 10,000 MMU CELLS/CAPSULE PO SCH ×2 (08:00→20:00)
[2021-05-15] MEDS: OLANZapine 5mg rapidly disint. tablet PO SCH (08:00)
[2021-05-15] MEDS: oxybutynin 5mg tablet PO SCH ×2 (08:00→20:00)
[2021-05-15] MEDS: FLUoxetine 20mg capsule PO SCH (08:00)
[2021-05-15] MEDS: allopurinol 100mg tablet PO SCH (08:00)
[2021-05-15] MEDS: docusate sodium 100mg/10ml UD cup PO SCH ×2 (08:00→20:00)
[2021-05-15] MEDS: K and/or MAG REPLACEMENT MC SCH ×2 (08:00→20:00)
[2021-05-15] MEDS: ROPINIRole 1mg tablet PO SCH ×2 (08:00→20:00)
[2021-05-15] MEDS: enoxaparin 60mg/0.6ml syringe SUBCUT SCH ×2 (08:38→22:16)
[2021-05-15] MEDS: dexamethasone sod phosphate 10mg/ml inj IV SCH ×2 (08:38→22:17)
[2021-05-15] MEDS: morphine 2 MG/ML inj. syringe IV PRN ×3 (08:43→22:48)
--- NOTE | 2021-05-15 09:20 | NUR ---
Page Sent PAGER ID: [phone] MESSAGE: ALECIA [phone] RE: MARI ELLISON [phone] PT WAS SEEN BY DR. ABRAHAM LAST NIGHT AND AGREED TO MAKE PT DNR/DNI, CAN YOU PUT IN DNI ORDER PLEASE? ALSO, PT HAS MET PROTOCOL WITH BLOOD SUGARS IN 190S, CAN I HAVE ORDERS PLEASE? THANKS!
[2021-05-15 10:00] VITALS: BP 133/81
[2021-05-15] MEDS ORDERED: dextrose ORAL solution 15 GM/59 ML bottle PO PRN ×2 (13:00)
[2021-05-15] MEDS ORDERED: dextrose 50%-water 50ml dispensing syringe IV PRN ×2 (13:00)
[2021-05-15] MEDS ORDERED: glucagon, human recombinant 1mg kit SUBCUT PRN (13:00)
[2021-05-15] MEDS ORDERED: MESSAGE TO PHARMACY PO ONE (13:00)
[2021-05-15 13:48] LABS: HEMOGLOBIN A1C 6.2 % (4.5-6.2)
[2021-05-15 14:00] VITALS: BP 128/78
[2021-05-15 14:51] LABS: ALANINE AMINOTRANSFERASE 69 U/L (12-78); ALBUMIN 1.9 G/DL (3.4-5.0); ALBUMIN/GLOBULIN RATIO 0.3 (1.1-1.5); ALKALINE PHOSPHATASE 92 IU/L (46-116); ANION GAP 13 (8-16); ASPARTATE AMINO TRANSFERASE 31 U/L (10-37); BILIRUBIN,TOTAL 0.2 MG/DL (0.1-1.0); BLOOD UREA NITROGEN 70 MG/DL (7-18); BUN/CREATININE RATIO 69.3 (6.6-38.0); CALCIUM 9.6 MG/DL (8.5-10.1); CHLORIDE 109 MMOL/L (99-107); CREATININE 1.01 MG/DL (0.40-0.90); GLUCOSE 183 MG/DL (70-104); POTASSIUM 5.7 MMOL/L (3.5-5.1); SODIUM 145 MMOL/L (135-145); TOTAL CARBON DIOXIDE 23.4 MMOL/L (24-32); TOTAL PROTEIN 7.7 G/DL (6.4-8.2); eGFR 54 ML/MIN
[2021-05-15] MEDS: insulin regular, human U-100 3ml vial - multi-dose SQ SCH ×2 (15:04→22:06)
[2021-05-15 18:00] VITALS: BP 93/52
--- NOTE | 2021-05-15 18:19 | NUR ---
Problems reprioritized. Patient report given, questions answered & plan of care reviewed with ELLEN ALEGRE.
[2021-05-15] MEDS ORDERED: insulin glargine (Lantus) pen - multi-dose SQ SCH (21:00)
[2021-05-15] MEDS: gabapentin 300mg capsule PO SCH (21:00)
[2021-05-15] MEDS: Melatonin 3mg tablet PO SCH (21:00)
[2021-05-15 22:00] VITALS: BP 106/52
[2021-05-15] MEDS: fat emulsion 20% inj. 100 ML IV SCH (22:17)
[2021-05-16] MEDS ORDERED: VANCOMYCIN LEVEL IV ONE (01:30)
[2021-05-16] MEDS: insulin regular, human U-100 3ml vial - multi-dose SQ SCH ×2 (02:31→09:41)
[2021-05-16] MEDS ORDERED: ZINC/COPPER/MANGANESE/SELENIUM 0.5 ML, chromic chloride inj. 5 MCG in AA 5%/CALCIUM/LYT... IV SCH (06:00)
[2021-05-16] MEDS: oxybutynin 5mg tablet PO SCH (06:33)
[2021-05-16] MEDS: pantoprazole 40mg Tablet.DR PO SCH (06:33)
[2021-05-16] MEDS: lactobacillus rhamnosus 10,000 MMU CELLS/CAPSULE PO SCH (06:33)
[2021-05-16] MEDS: docusate sodium 100mg/10ml UD cup PO SCH (06:33)
[2021-05-16] MEDS: baclofen 10mg tablet PO SCH (06:33)
[2021-05-16] MEDS: OLANZapine 5mg rapidly disint. tablet PO SCH (06:34)
[2021-05-16] MEDS: allopurinol 100mg tablet PO SCH (06:34)
[2021-05-16] MEDS: FLUoxetine 20mg capsule PO SCH (06:34)
[2021-05-16] MEDS: ROPINIRole 1mg tablet PO SCH (06:34)
--- NOTE | 2021-05-16 06:47 | NUR ---
Patient in room ORTHO 4006. I have received report from tera jc and had the opportunity to ask questions and assume patient care.
[2021-05-16] MEDS: K and/or MAG REPLACEMENT MC SCH (08:00)
[2021-05-16] MEDS: enoxaparin 60mg/0.6ml syringe SUBCUT SCH (08:38)
[2021-05-16] MEDS ORDERED: dexamethasone inj 8 MG in normal saline 50ml IV soln 50 ML IV SCH (08:39)
[2021-05-16 09:56] LABS: BASOPHILS % (AUTO) 0.2 % (0-1); EOSINOPHILS % (AUTO) 0 % (0-6); HEMOGLOBIN 12.5 g/dl (12.0-16.0); LYMPHOCYTES # (AUTO) 0.6 X10'3 (1.1-4.8); LYMPHOCYTES % (AUTO) 2.4 % (21-51); MEAN CORPUSCULAR HEMOGLOBIN 32.7 PG (27.0-31.0); MEAN CORPUSCULAR HGB CONC 32.1 g/dL (33.0-36.5); MEAN CORPUSCULAR VOLUME 101.6 FL (78-98); MEAN PLATELET VOLUME 8.9 FL (7.4-10.4); MONOCYTES # (AUTO) 0.6 X10'3 (0-0.9); MONOCYTES % (AUTO) 2.6 % (2-12); NEUTROPHILS # (AUTO) 23.1 X10'3 (1.8-7.7); NEUTROPHILS % (AUTO) 94.8 % (42-75); PLATELET COUNT 358 X10'3 (140-440); RED BLOOD COUNT 3.84 X10'6 (4.20-5.60); RED CELL DISTRIBUTION WIDTH 15.6 % (11.5-14.5); WHITE BLOOD COUNT 24.4 X10'3 (4.5-11.0)
[2021-05-16 10:00] VITALS: BP 133/81
[2021-05-16 11:30] LABS: TOTAL CELLS COUNTED 100
[2021-05-16 11:32] LABS: PLATELET ESTIMATE NORMAL
[2021-05-16 11:33] LABS: GIANT PLATELET FEW; LARGE PLATELETS FEW
[2021-05-16 11:39] LABS: ELLIPTOCYTES FEW
[2021-05-16] MEDS: morphine 2 MG/ML inj. syringe IV PRN (11:51)
--- NOTE | 2021-05-16 11:55 | NUR ---
PTS DAUGHTER CAME TO THE FLOOR TO SEE PT. PT STATUS WAS CHANGED FROM DNR TO COMFORT CARE PER MDS DISCUSSION WITH . DAUGHTER WANTED PT TAKEN OFF BIPAP SO SHE WOULD NOT SUFFER ANY LONGER. MORPHINE WAS GIVEN AND PT TAKEN OFF BIPAP.
--- NOTE | 2021-05-16 12:15 | NUR ---
PAGED DR LEYVA RE: PAGER ID: [phone] MESSAGE: MARI ELLISON. PER DAUGHTER REQ PT WAS TAKEN OFF BIPAP. PT PASSED @ 1211., DAUGHTER AT BEDSIDE. O/N GEORGI [id number]
--- NOTE | 2021-05-16 12:37 | NUR ---
RECOMMEND: 1. Daily bathing with no rinse skin cleanser. 2. Cream/Lotion to be applied to skin after bathing. 3. Cyndi care Q shift and prn soiling followed by with Barrier Cream. 4. Turn patient Q 1-2 hrs and reposition with pillows. 5. Float heels to offload pressure. Addendum: 05/16/21 at 1240 by Smitha Gan RN Error. RN did not intend to enter this note.
--- NOTE | 2021-05-16 14:22 | NUR ---
PT . RELEASED TO BRAD. PICC LINE REMOVED, FC REMOVED, TELE MONITOR REMOVED. PT DOUBLE BAGGED. Addendum: 05/16/21 at 1428 by Sherrie Daugherty RN Amended: Links added.
[2021-05-17] MEDS ORDERED: MVI, adult No.4 with vit. K 10 ML in dextrose 5% water 500ml 500 ML IV SCH ×2 (10:00)
== END 2021-05-16 14:15 | DRG 177 ==
LOC: ER 19:37 → ED HOLD 21:49 → PCU 3S 05-03 09:10 → ORTHO 4S 05-11 20:26
PROVIDERS: ADMIT Internal Medicine; ATTEND Family Medicine
PROC: 5A0945A Assistance with Respiratory Ventilation, 24-96 Consecutive Hours, High Flow/Velocity Cannula (ICD-10-PCS; 2021-05-04)
PROC: 5A09557 Assistance with Respiratory Ventilation, Greater than 96 Consecutive Hours, Continuous Positive Airway Pressure (ICD-10-PCS; 2021-05-06)
PROC: 02HV33Z Insertion of Infusion Device into Superior Vena Cava, Percutaneous Approach (ICD-10-PCS; 2021-05-10)
PROC: B548ZZA Ultrasonography of Superior Vena Cava, Guidance (ICD-10-PCS; 2021-05-10)
PROC: 5A0935A Assistance with Respiratory Ventilation, Less than 24 Consecutive Hours, High Flow/Velocity Cannula (ICD-10-PCS; 2021-05-11)
PROC: 5A09357 Assistance with Respiratory Ventilation, Less than 24 Consecutive Hours, Continuous Positive Airway Pressure (ICD-10-PCS; 2021-05-11)
PROC: 5A0945A Assistance with Respiratory Ventilation, 24-96 Consecutive Hours, High Flow/Velocity Cannula (ICD-10-PCS; 2021-05-12)
PROC: 5A09457 Assistance with Respiratory Ventilation, 24-96 Consecutive Hours, Continuous Positive Airway Pressure (ICD-10-PCS; principal; 2021-05-13)
DX: U07.1 COVID-19 (principal); J96.01 Acute respiratory failure with hypoxia; J12.82 Pneumonia due to coronavirus disease 2019; E46 Unspecified protein-calorie malnutrition; E87.0 Hyperosmolality and hypernatremia; Z68.1 Body mass index [BMI] 19.9 or less, adult; F03.90 Unspecified dementia, unspecified severity, without behavioral disturbance, psychotic disturbance, mood disturbance, and anxiety; H91.3 Deaf nonspeaking, not elsewhere classified; Z66 Do not resuscitate; Z51.5 Encounter for palliative care; F32.9 Major depressive disorder, single episode, unspecified; G62.9 Polyneuropathy, unspecified; K21.9 Gastro-esophageal reflux disease without esophagitis; M10.9 Gout, unspecified; Z79.899 Other long term (current) drug therapy
CPT/HCPCS: 36415; 36573; 36600; 71045; 80048; 80053; 80202; 82803; 82948; 83036; 83735; 83880; 84100; 84134; 84145; 84478; 84484; 84560; 85007; 85018; 85025; 85379; 86140; 87040; 87077; 87081; 87186; 93005; 94640; 94660; 94760; 94799; 96360; 96361; 97110; 97112; 97161; 97530; 97535; 99285; G0378; J0692; J1100; J1650; J1815; J1940; J2060; J2270; J2405; J3370; J7030